=== PATIENT | female | born 1975 | race Two or more races ===

== ENCOUNTER → 2017-02-24 | Emergency (ER) | payer OTHER ==
[~2017-02-24] VITALS: Ht 165.1 cm; Wt 70.8 kg
[~2017-02-24] MED LIST: ATENOLOL25 MG PO; PREMARIN2.5 MG PO; TROKENDI XR50 MG
== END | disposition home or self-care (01) ==
LOC: ER 09:37
DX: R10.32 Left lower quadrant pain (principal)

== ENCOUNTER 2017-06-30 17:16 | Emergency (ER) | payer OTHER ==
[~2017-06-30] VITALS: Ht 165.1 cm; Wt 70.3 kg
[2017-06-30] MEDS ORDERED: TOPROL XL25 M1 (17:30)
[2017-06-30] MEDS ORDERED: TOPAMAX50 MG (17:30)
== END 2017-07-01 00:32 | disposition home or self-care (01) ==
LOC: ER 17:16
DX: N20.0 Calculus of kidney (principal); N39.0 Urinary tract infection, site not specified

== ENCOUNTER → 2018-09-27 | Emergency (ER) | payer OTHER ==
[~2018-09-27] VITALS: Ht 165.1 cm; Wt 77.1 kg
[~2018-09-27] MED LIST changes: +MONTELUKAST SOD10 MG; +TOPAMAX50 MG; +TOPROL XL25 M1
== END | disposition left against medical advice (07) ==
LOC: ER 06:13
DX: Z53.20 Procedure and treatment not carried out because of patient's decision for unspecified reasons (principal)

== ENCOUNTER 2018-12-19 06:30 | Emergency (ER) | payer OTHER ==
[~2018-12-19] VITALS: Ht 167.6 cm; Wt 72.6 kg
== END 2018-12-19 14:07 | disposition home or self-care (01) ==
LOC: ER 06:30
DX: N20.0 Calculus of kidney (principal); R10.31 Right lower quadrant pain

== ENCOUNTER 2019-02-21 05:15 | Day surgery (SDC) | payer OTHER ==
[~2019-02-21 05:15] MED LIST changes: +SINGULAIR10 MG PO; +TOPAMAX50 MG PO
== END 2019-02-21 12:25 | disposition home or self-care (01) ==
LOC: CIR.AMB 05:15
DX: N20.0 Calculus of kidney (principal)

== ENCOUNTER → 2019-02-26 | Outpatient (CLI) | payer OTHER | END | disposition home or self-care (01) | LOC: RAD 07:42 | DX: N20.0 Calculus of kidney (principal) ==

== ENCOUNTER → 2019-03-10 | Outpatient (CLI) | payer OTHER | END | disposition home or self-care (01) | LOC: RAD 10:06 | DX: N20.0 Calculus of kidney (principal) ==

== ENCOUNTER 2019-10-03 06:41 | Emergency (ER) | payer OTHER ==
[~2019-10-03] VITALS: Ht 165.1 cm; Wt 79.4 kg
[2019-10-03] MEDS ORDERED: PEPCID AC20 MG PO (13:59)
[2019-10-03] MEDS ORDERED: INTESTINEX680 M1 PO (13:59)
[2019-10-03] MEDS ORDERED: ZITHROMAX500 MG PO (13:59)
== END 2019-10-03 14:28 | disposition home or self-care (01) ==
LOC: ER 06:41
DX: R10.13 Epigastric pain (principal); Z03.818 Encounter for observation for suspected exposure to other biological agents ruled out

== ENCOUNTER 2020-03-13 06:25 | Outpatient (CLI) | payer OTHER ==
[~2020-03-13 06:25] MED LIST changes: +INTESTINEX680 M1 PO; +PEPCID AC20 MG PO; +ZITHROMAX500 MG PO
== END 2020-03-13 06:30 | disposition home or self-care (01) ==
LOC: LAB 06:25
PROVIDERS: ATTEND Internal Medicine Hematology & Oncology
DX: D50.8 Other iron deficiency anemias (principal); R79.89 Other specified abnormal findings of blood chemistry; I10 Essential (primary) hypertension; R74.02 Elevation of levels of lactic acid dehydrogenase [LDH]; K76.89 Other specified diseases of liver; D63.8 Anemia in other chronic diseases classified elsewhere; D55.0 Anemia due to glucose-6-phosphate dehydrogenase [G6PD] deficiency; D51.1 Vitamin B12 deficiency anemia due to selective vitamin B12 malabsorption with proteinuria; D51.0 Vitamin B12 deficiency anemia due to intrinsic factor deficiency; B20 Human immunodeficiency virus [HIV] disease; B17.8 Other specified acute viral hepatitis; Z11.59 Encounter for screening for other viral diseases; E03.8 Other specified hypothyroidism; E06.3 Autoimmune thyroiditis; D69.6 Thrombocytopenia, unspecified; G62.89 Other specified polyneuropathies; J45.998 Other asthma

== ENCOUNTER 2020-05-27 07:01 | Outpatient (CLI) | payer OTHER | END 2020-05-27 07:12 | disposition home or self-care (01) | LOC: LAB 07:01 | PROVIDERS: ATTEND Internal Medicine Hematology & Oncology | DX: I10 Essential (primary) hypertension (principal); R74.02 Elevation of levels of lactic acid dehydrogenase [LDH]; K76.89 Other specified diseases of liver; D50.8 Other iron deficiency anemias; D51.8 Other vitamin B12 deficiency anemias; R79.89 Other specified abnormal findings of blood chemistry; D51.3 Other dietary vitamin B12 deficiency anemia; D69.6 Thrombocytopenia, unspecified; G62.89 Other specified polyneuropathies; J45.998 Other asthma ==

== ENCOUNTER 2020-12-07 19:24 | Emergency (ER) | payer OTHER ==
[~2020-12-07] VITALS: Ht 165.1 cm; Wt 73.9 kg
== END 2020-12-07 21:42 | disposition home or self-care (01) ==
LOC: ER 19:24
DX: R07.9 Chest pain, unspecified (principal); Z03.818 Encounter for observation for suspected exposure to other biological agents ruled out

== ENCOUNTER 2022-02-12 10:30 | Emergency (ER) | payer OTHER ==
[~2022-02-12] VITALS: Ht 165.1 cm; Wt 75.7 kg
[2022-02-12] MEDS ORDERED: TENORMIN25 MG PO (10:48)
[2022-02-12] MEDS ORDERED: COZAAR50 MG PO (10:48)
[2022-02-12] MEDS ORDERED: GRALISE600 MG PO (10:48)
[2022-02-12] MEDS ORDERED: TEMAZEPAM30 MG PO (10:50)
[2022-02-12] MEDS ORDERED: NORFLEX100MG PO (14:54)
[2022-02-12] MEDS ORDERED: KETO10TA2 PO (14:54)
== END 2022-02-12 15:01 | disposition home or self-care (01) ==
LOC: ER 10:30
DX: S39.92XA Unspecified injury of lower back, initial encounter (principal); W18.30XA Fall on same level, unspecified, initial encounter; Y93.9 Activity, unspecified; Y92.018 Other place in single-family (private) house as the place of occurrence of the external cause; Y99.9 Unspecified external cause status; Z88.2 Allergy status to sulfonamides; Z88.8 Allergy status to other drugs, medicaments and biological substances; I10 Essential (primary) hypertension

== ENCOUNTER 2024-11-23 06:00 | Day surgery (SDC) | payer OTHER ==
[2024-11-16 11:18] LABS: URINE APPEARANCE Clear; URINE BILIRRUBIN Negative (NEGATIVE); URINE BLOOD Negative; URINE COLOR Yellow; URINE GLUCOSE Negative (NEGATIVE); URINE KETONE Negative (NEGATIVE); URINE LEUKOCYTE Negative; URINE NITRATE Negative; URINE PROTEIN Negative (NEGATIVE); URINE UROBILINOGEN 0.2 E.U./dl
[2024-11-16 11:22] LABS: BASO % 0.5 % (0.1-1.2); EOS # 0.07 (0.04-0.54); EOS % 0.8 % (0.7-7.0); LYMPH # 2.57 (1.18-3.74); LYMPH % 28.0 % (19.3-53.1); MEAN PLATELET VOLUME 9.40 fl (9.4-12.4); MONO # 0.62 (0.24-0.82); MONO % 6.8 % (4.7-12.5); NEUT # 5.84 (1.56-6.13); NEUT % 63.7 % (34.0-71.1); RED CELL DISTRIBUTION WIDTH 13.2 % (11.6-14.4)
[2024-11-16 11:23] LABS: URINE BACTERIA 93.5 uL (0.0-1933); URINE EPITHELIAL CELLS 17.0 uL (0.0-38.8); URINE RBC 2.0 uL (0.0-20.8); URINE WBC 2.1 uL (0.0-23.2)
[2024-11-16 11:31] LABS: URINE CAST 0.00 uL (0.0-1.40)
[2024-11-16 11:51] VITALS: BP 146/84
[2024-11-16 12:02] LABS: INR 0.97
[2024-11-16 12:08] LABS: BUN CREA RATIO 19.0 (7.0-25.0); CREATININE SERUM 0.58 mg/dL (0.55-1.02); GFR 110.04; GLUCOSE FASTING 89.0 mg/dL (65-100); OSMOLALITY SERUM 282.0 MOSM/KG (275-295)
[~2024-11-23] VITALS: Ht 162.6 cm; Wt 83.0 kg
[~2024-11-23 06:00] MED LIST changes: +BACLOFEN20 MG PO; +CEPHALEXIN500 M1 PO; +CIPROFLOXACIN2.5 ML OTIC; +CLONAZEPAM2 MG; +COZAAR50 MG PO; +DEPAKOTE ER500 MG PO; +EMGALITY P120 MG/1 M; +FLOVENT DISKUS50 MCG IH; +GRALISE600 MG PO; +KETO10TA2 PO; +LYRICA150 MG PO; +NORFLEX100MG PO; +TEMAZEPAM30 MG PO; +TENORMIN25 MG PO; +TRAZODONE HCL100 MG PO
[2024-11-23] MEDS ORDERED: EPINEPHRINE HCL/PF 1 MG/ML AMPUL ONE (06:42)
[2024-11-23] MEDS ORDERED: LIDOCAINE HCL 1%/EPINEPHRINE 20ML VIAL IJ ONE (06:43)
[2024-11-23] MEDS ORDERED: POVIDONE-IODINE 118 ML BOTT TOP ONE (06:43)
[2024-11-23] MEDS ORDERED: CEFAZOLIN SODIUM 1,000 MG VIAL ONE (06:51)
[2024-11-23] MEDS ORDERED: CIPROFLOXACIN2.5 ML OTIC (09:03)
[2024-11-23] MEDS ORDERED: CEPHALEXIN500 MG PO (09:03)
== END 2024-11-23 11:45 | disposition home or self-care (01) ==
LOC: CIR.AMB 06:00
PROVIDERS: ATTEND Otolaryngology Otology & Neurotology
DX: H90.12 Conductive hearing loss, unilateral, left ear, with unrestricted hearing on the contralateral side (principal); H80.92 Unspecified otosclerosis, left ear; Z88.2 Allergy status to sulfonamides